=== PATIENT | female | born 1965 | race Caucasian/White ===

== ENCOUNTER 2020-04-11 23:46 | Inpatient (IN) ==
[2020-04-11] MEDS ORDERED: Aspirin 81 MG TAB.CHEW PO ONE (23:52)
[2020-04-12] MEDS ORDERED: *HR* Heparin 5,000 UNIT/ML VIAL IVP ONE
[2020-04-12] MEDS ORDERED: 0.9 % Sodium Chloride 1,000 ML ONE ×2 (00:05→00:18)
[2020-04-12] MEDS ORDERED: Morphine Sulfate 2 MG/ML SYRINGE IVP ONE (00:17)
[2020-04-12] MEDS ORDERED: *HR* Heparin 10,000 UNIT/10 ML VIAL ONE (00:18)
[2020-04-12] MEDS ORDERED: Ondansetron 4 MG/2 ML VIAL IVP ONE (00:18)
[2020-04-12] MEDS ORDERED: ISOVUE-370 200 ML INFUS..BTL ONE (00:18)
[2020-04-12] MEDS ORDERED: Heparin 1,000 UNITS/500 mL 500 ML ONE (00:18)
[2020-04-12] MEDS ORDERED: Nitroglycerin 1,000 MCG/10 ML VIAL IV ONE (00:18)
[2020-04-12 00:29] LABS: Basophils % 0.5 %; Eosinophils # 0.1 K/mcL (0.0-0.6); Eosinophils % 1.6 %; Hemoglobin 14.7 g/dL (11.5-15.4); Immature Granulocytes % 0.3 % (0-4); Lymphocytes # 1.5 K/mcL (0.6-4.6); Lymphocytes % 23.6 %; Mean Corpuscular HGB Conc 34.2 g/dL (31.6-35.5); Mean Corpuscular Hemoglobin 32.2 pg (28.0-33.3); Mean Corpuscular Volume 94.1 fL (83.0-100.0); Mean Platelet Volume 8.9 fL (9.4-12.4); Monocytes # 0.4 K/mcL (0.0-1.3); Monocytes % 5.7 %; Neutrophils # 4.2 K/mcL (1.6-8.9); Platelet Count 280 K/mcL (140-400); Red Blood Count 4.57 M/mcL (3.82-4.97); Red Cell Distribution Width 12.8 % (11.5-14.5); Segmented Neutrophils % 68.3 %; White Blood Count 6.2 K/mcL (4.3-11.1)
[2020-04-12 00:33] LABS: INR 0.9; Prothrombin Time 10.2 Seconds (9.4-12.1)
[2020-04-12 00:34] LABS: BUN/Creatinine Ratio 17 (6-26); Blood Urea Nitrogen 10 mg/dL (6-20); Carbon Dioxide 17 mEq/L (23-29); Chloride 107 mEq/L (98-107); Glucose 119 mg/dL (70-105); Osmolality,Calculated 282 (280-300); Potassium 3.8 mEq/L (3.5-5.1); Sodium 136 mEq/L (136-145); eGFR For African Americans > 60 (> 60); eGFR For Non-African Americans > 60 (> 60)
[2020-04-12 00:35] LABS: Troponin I < 0.03 ng/mL (< 0.04)
[2020-04-12 00:36] LABS: Activated Partial Thrombo Time 77.7 Seconds (26.0-36.0)
[2020-04-12] MEDS ORDERED: *HR* Midazolam HCl 2 MG/2 ML VIAL ONE (00:40)
[2020-04-12] MEDS ORDERED: *HR* Ticagrelor 90 MG TABLET ONE (00:51)
[2020-04-12] MEDS ORDERED: *HR* Atropine Sulfate 1 MG/10 ML SYRINGE ONE (00:53)
[2020-04-12] MEDS ORDERED: Perflutren Lipid Microsphere 1.3 ML in 0.9 % Sodium Chloride 8.7 ML IVP PRN (01:21)
[2020-04-12] MEDS ORDERED: 0.9 % Sodium Chloride 1,000 ML IVC SCH (01:30)
[2020-04-12] MEDS: 0.9 % Sodium Chloride 1,000 ML IVC SCH (02:18)
[2020-04-12 07:18] LABS: Basophils % 0.4 %; Eosinophils # 0.1 K/mcL (0.0-0.6); Eosinophils % 1.5 %; Hemoglobin 13.8 g/dL (11.5-15.4); Lymphocytes # 1.4 K/mcL (0.6-4.6); Lymphocytes % 31.2 %; Mean Corpuscular HGB Conc 33.7 g/dL (31.6-35.5); Mean Corpuscular Hemoglobin 31.8 pg (28.0-33.3); Mean Corpuscular Volume 94.5 fL (83.0-100.0); Mean Platelet Volume 8.8 fL (9.4-12.4); Monocytes # 0.4 K/mcL (0.0-1.3); Monocytes % 8.4 %; Neutrophils # 2.6 K/mcL (1.6-8.9); Platelet Count 247 K/mcL (140-400); Red Blood Count 4.34 M/mcL (3.82-4.97); Red Cell Distribution Width 12.9 % (11.5-14.5); Segmented Neutrophils % 58.5 %; White Blood Count 4.5 K/mcL (4.3-11.1)
[2020-04-12 08:18] LABS: BUN/Creatinine Ratio 16 (6-26); Blood Urea Nitrogen 8 mg/dL (6-20); Calcium 8.3 mg/dL (8.6-10.3); Carbon Dioxide 21 mEq/L (23-29); Chloride 111 mEq/L (98-107); Chol/HDL Ratio 3.8 (0-4.9); Cholesterol 200 mg/dL (< 200); Glucose 113 mg/dL (70-105); HDL Cholesterol 53 mg/dL (40-59); LDL Cholesterol,Calculated 127 mg/dL (< 100); Magnesium 1.8 mg/dL (1.6-2.6); Osmolality,Calculated 283 (280-300); Potassium 3.9 mEq/L (3.5-5.1); Sodium 137 mEq/L (136-145); Triglycerides 99 mg/dL (< 150); Troponin I > 73.00 ng/mL (< 0.04); eGFR For African Americans > 60 (> 60); eGFR For Non-African Americans > 60 (> 60)
[2020-04-12] MEDS: *HR* Ticagrelor 90 MG TABLET PO SCH ×2 (09:06→20:33)
[2020-04-12] MEDS: Aspirin 81 MG TAB.CHEW PO SCH (09:06)
[2020-04-12] MEDS ORDERED: Metoprolol XL (24 HR) Succ 25 MG TAB.ER.24H PO SCH (10:15)
[2020-04-12] MEDS ORDERED: Morphine Sulfate 2 MG/ML SYRINGE IVP PRN (10:41)
[2020-04-12] MEDS ORDERED: lisinopriL 5 MG TABLET PO SCH (18:15)
[2020-04-13] MEDS: 0.9 % Sodium Chloride 1,000 ML IVC SCH (00:07)
[2020-04-13] MEDS: *HR* Ticagrelor 90 MG TABLET PO SCH ×2 (07:36→19:11)
[2020-04-13] MEDS: Aspirin 81 MG TAB.CHEW PO SCH (07:36)
[2020-04-13] MEDS ORDERED: Metoprolol XL (24 HR) Succ 25 MG TAB.ER.24H PO SCH (10:15)
[2020-04-13] MEDS ORDERED: Morphine Sulfate 2 MG/ML SYRINGE IVP PRN (10:35)
[2020-04-13] MEDS: lisinopriL 5 MG TABLET PO SCH (12:45)
[2020-04-13] MEDS: Metoprolol XL (24 HR) Succ 25 MG TAB.ER.24H PO SCH (12:45)
[2020-04-14 07:02] VITALS: BP 103/77
[2020-04-14] MEDS: *HR* Ticagrelor 90 MG TABLET PO SCH (07:11)
[2020-04-14] MEDS: lisinopriL 5 MG TABLET PO SCH (07:12)
[2020-04-14] MEDS: Metoprolol XL (24 HR) Succ 25 MG TAB.ER.24H PO SCH (07:12)
[2020-04-14] MEDS ORDERED: lisinopriL 5 MG TABLET PO SCH (09:00)
[2020-04-14] MEDS ORDERED: Metoprolol XL (24 HR) Succ 25 MG TAB.ER.24H PO SCH (09:00)
[2020-04-14] MEDS ORDERED: Aspirin 81 MG TAB.CHEW PO SCH (09:00)
== END 2020-04-14 10:40 | disposition home or self-care (01) | DRG 174 ==
LOC: EMEROOARM 23:46 → ICNU 04-12 00:23 → 2NNU 04-13 21:54
PROVIDERS: ADMIT Internal Medicine Interventional Cardiology; ATTEND Internal Medicine Interventional Cardiology